=== PATIENT | male | born 1960 ===

== ENCOUNTER 2018-05-13 17:57 | Emergency (ER) | payer OTHER ==
[2018-05-13] MEDS ORDERED: MORPHINE IV ONE (18:14)
[2018-05-13] MEDS ORDERED: NACL 0.9% 1000 ML 1,000 ML IV ONE (18:14)
[2018-05-13] MEDS ORDERED: ZOFRAN IV ONE ×2 (18:14→20:27)
--- NOTE | 2018-05-13 18:16 | Emergency Department Report ---
ED General Adult HPI - General Chief complaint: Abdominal Pain Stated complaint: ABDOMINAL PAIN Time Seen by Provider: 05/13/18 18:07 Source: patient, EMS Mode of arrival: Stretcher Limitations: No Limitations - History of Present Illness Initial comments: Patient presents to the emergency department with a chief complaint of abdominal pain that started after midnight. Patient states the pain is sharp in nature and denies any radiation. Patient denies chest pain, shortness breath, headache. -: Sudden Location: abdomen Radiation: non-radiation Severity scale (0 -10): 5 Quality: sharp Consistency: constant Improves with: none Worsens with: none Associated Symptoms: denies other symptoms Treatments Prior to Arrival: none - Related Data Home Medications Medication Instructions Recorded Confirmed Last Taken Lisinopril 20 mg PO DAILY 05/13/18 05/13/18 05/13/18 20mg metFORMIN 500 mg PO BID 05/13/18 05/13/18 05/13/18 500mg Previous Rx's Medication Instructions Recorded Last Taken Type HYDROcodone/APAP 5-325 [Warrior 1 each PO Q4HR PRN #15 tablet 05/13/18 Unknown Rx 5/325] Ondansetron [Zofran Odt] 4 mg PO Q6H PRN #20 tab.rapdis 05/13/18 Unknown Rx Promethazine [Phenergan TAB] 25 mg PO Q6HR PRN #12 tab 05/13/18 Unknown Rx Tamsulosin [Flomax] 0.4 mg PO QDAY #7 cap 05/13/18 Unknown Rx Allergies Allergy/AdvReac Type Severity Reaction Status Date / Time No Known Allergies Allergy Unverified 05/13/18 18:03 ED Review of Systems ROS: Stated complaint: ABDOMINAL PAIN Other details as noted in HPI Comment: All other systems reviewed and negative Constitutional: denies: chills, fever Eyes: denies: eye pain, eye discharge, vision change ENT: denies: ear pain, throat pain Respiratory: denies: cough, shortness of breath, wheezing Cardiovascular: denies: chest pain, palpitations Endocrine: no symptoms reported Gastrointestinal: abdominal pain. denies: nausea, diarrhea Genitourinary: denies: urgency, dysuria Musculoskeletal: denies: back pain, joint swelling, arthralgia Skin: denies: rash, lesions Neurological: denies: headache, weakness, paresthesias Psychiatric: denies: anxiety, depression Hematological/Lymphatic: denies: easy bleeding, easy bruising ED Past Medical Hx - Past Medical History Previous Medical History?: Yes - Social History Smoking Status: Current Every Day Smoker Substance Use Type: None - Medications Home Medications: Home Medications Medication Instructions Recorded Confirmed Last Taken Type HYDROcodone/APAP 5-325 [Warrior 1 each PO Q4HR PRN #15 tablet 05/13/18 Unknown Rx 5/325] Lisinopril 20 mg PO DAILY 05/13/18 05/13/18 05/13/18 History 20mg Ondansetron [Zofran Odt] 4 mg PO Q6H PRN #20 tab.rapdis 05/13/18 Unknown Rx Promethazine [Phenergan TAB] 25 mg PO Q6HR PRN #12 tab 05/13/18 Unknown Rx Tamsulosin [Flomax] 0.4 mg PO QDAY #7 cap 05/13/18 Unknown Rx metFORMIN 500 mg PO BID 05/13/18 05/13/18 05/13/18 History 500mg ED Physical Exam - General Limitations: No Limitations General appearance: alert, in no apparent distress - Head Head exam: Present: atraumatic, normocephalic - Eye Eye exam: Present: normal appearance, PERRL, EOMI - ENT ENT exam: Present: mucous membranes dry - Neck Neck exam: Present: normal inspection - Respiratory Respiratory exam: Present: normal lung sounds bilaterally. Absent: respiratory distress, wheezes, rales - Cardiovascular Cardiovascular Exam: Present: regular rate, normal rhythm. Absent: systolic murmur, diastolic murmur, rubs, gallop - GI/Abdominal GI/Abdominal exam: Present: soft, tenderness (ttp rlq ), normal bowel sounds. Absent: distended - Rectal Rectal exam: Present: deferred - Extremities Exam Extremities exam: Present: normal inspection - Back Exam Back exam: Present: normal inspection - Neurological Exam Neurological exam: Present: alert, oriented X3 - Psychiatric Psychiatric exam: Present: normal affect, normal mood - Skin Skin exam: Present: warm, dry, intact, normal color. Absent: rash ED Course Vital Signs 05/13/18 05/13/18 05/13/18 18:15 18:23 18:31 Temperature 98.7 F Pulse Rate 88 89 Respiratory 22 16 17 Rate Blood Pressure 136/77 Blood Pressure 136/77 [Left] O2 Sat by Pulse 96 93 Oximetry 05/13/18 05/13/18 18:45 20:03 Temperature Pulse Rate 81 Respiratory 18 Rate Blood Pressure 136/77 136/77 Blood Pressure [Left] O2 Sat by Pulse 91 92 Oximetry ED Medical Decision Making - Lab Data Result diagrams: 05/13/18 18:15 05/13/18 18:15 Lab Results 05/13/18 05/13/18 05/13/18 Range/Units 18:15 18:15 18:19 WBC 8.5 (4.5-11.0) K/mm3 RBC 4.96 (3.65-5.03) M/mm3 Hgb 15.7 H (11.8-15.2) gm/dl Hct 44.8 (35.5-45.6) % MCV 90 (84-94) fl MCH 32 (28-32) pg MCHC 35 H (32-34) % RDW 14.7 (13.2-15.2) % Plt Count 205 (140-440) K/mm3 Lymph % (Auto) 6.6 L (13.4-35.0) % Collin % (Auto) 2.5 (0.0-7.3) % Eos % (Auto) 0.8 (0.0-4.3) % Baso % (Auto) 0.6 (0.0-1.8) % Lymph # 0.6 L (1.2-5.4) K/mm3 Collin # 0.2 (0.0-0.8) K/mm3 Eos # 0.1 (0.0-0.4) K/mm3 Baso # 0.0 (0.0-0.1) K/mm3 Seg Neutrophils % 89.5 H (40.0-70.0) % Seg Neutrophils # 7.6 (1.8-7.7) K/mm3 Sodium 135 L (137-145) mmol/L Potassium 4.4 (3.6-5.0) mmol/L Chloride 98.5 (98-107) mmol/L Carbon Dioxide 24 (22-30) mmol/L Anion Gap 17 mmol/L BUN 20 (9-20) mg/dL Creatinine 0.8 (0.8-1.5) mg/dL Estimated GFR > 60 ml/min BUN/Creatinine Ratio 25 % Glucose 417 H (75-100) mg/dL Calcium 8.7 (8.4-10.2) mg/dL Total Bilirubin 0.20 (0.1-1.2) mg/dL AST 34 (5-40) units/L ALT 35 (7-56) units/L Alkaline Phosphatase 81 (35-129) units/L Total Protein 7.8 (6.3-8.2) g/dL Albumin 3.7 L (3.9-5) g/dL Albumin/Globulin Ratio 0.9 % Lipase 74 H (13-60) units/L Urine Color (Yellow) Urine Turbidity (Clear) Urine pH (5.0-7.0) Ur Specific Lincoln (1.003-1.030) Urine Protein (Negative) mg/dL Urine Glucose (UA) (Negative) mg/dL Urine Ketones (Negative) mg/dL Urine Blood (Negative) Urine Nitrite (Negative) Urine Bilirubin (Negative) Urine Urobilinogen (<2.0) mg/dL Ur Leukocyte Esterase (Negative) Urine WBC (Auto) (0.0-6.0) /HPF Urine RBC (Auto) (0.0-6.0) /HPF U Epithel Cells (Auto) (0-13.0) /HPF Urine Mucus /HPF 05/13/18 Range/Units 18:23 WBC (4.5-11.0) K/mm3 RBC (3.65-5.03) M/mm3 Hgb (11.8-15.2) gm/dl Hct (35.5-45.6) % MCV (84-94) fl MCH (28-32) pg MCHC (32-34) % RDW (13.2-15.2) % Plt Count (140-440) K/mm3 Lymph % (Auto) (13.4-35.0) % Collin % (Auto) (0.0-7.3) % Eos % (Auto) (0.0-4.3) % Baso % (Auto) (0.0-1.8) % Lymph # (1.2-5.4) K/mm3 Collin # (0.0-0.8) K/mm3 Eos # (0.0-0.4) K/mm3 Baso # (0.0-0.1) K/mm3 Seg Neutrophils % (40.0-70.0) % Seg Neutrophils # (1.8-7.7) K/mm3 Sodium (137-145) mmol/L Potassium (3.6-5.0) mmol/L Chloride (98-107) mmol/L Carbon Dioxide (22-30) mmol/L Anion Gap mmol/L BUN (9-20) mg/dL Creatinine (0.8-1.5) mg/dL Estimated GFR ml/min BUN/Creatinine Ratio % Glucose (75-100) mg/dL Calcium (8.4-10.2) mg/dL Total Bilirubin (0.1-1.2) mg/dL AST (5-40) units/L ALT (7-56) units/L Alkaline Phosphatase (35-129) units/L Total Protein (6.3-8.2) g/dL Albumin (3.9-5) g/dL Albumin/Globulin Ratio % Lipase (13-60) units/L Urine Color Straw (Yellow) Urine Turbidity Clear (Clear) Urine pH 5.0 (5.0-7.0) Ur Specific Lincoln 1.031 H (1.003-1.030) Urine Protein <15 mg/dl (Negative) mg/dL Urine Glucose (UA) >=500 (Negative) mg/dL Urine Ketones Neg (Negative) mg/dL Urine Blood Neg (Negative) Urine Nitrite Neg (Negative) Urine Bilirubin Neg (Negative) Urine Urobilinogen < 2.0 (<2.0) mg/dL Ur Leukocyte Esterase Neg (Negative) Urine WBC (Auto) < 1.0 (0.0-6.0) /HPF Urine RBC (Auto) < 1.0 (0.0-6.0) /HPF U Epithel Cells (Auto) < 1.0 (0-13.0) /HPF Urine Mucus Few /HPF - Radiology Data Radiology results: report reviewed Referring Physician: KIMO RECINOS Patient Name: KETTY MATUTE Date of : 1960 Sex: Male Report Date: 2018-05-13 Report Status: Finalized [facility] [address] [place] [address] Cat Scan Report Signed Patient: KETTY MATUTE MR#: [id number] : 1960 Acct:[id number] Age/Sex: 58 / M ADM Date: 05/13/18 Loc: ED Attending Dr: Ordering Physician: KIMO RECINOS MD Date of Service: 05/13/18 Procedure(s): CT abdomen pelvis wo con Accession Number(s): [id number] cc: KIMO RECINOS MD FINAL REPORT EXAM: CT ABDOMEN PELVIS WO CON HISTORY: rlq ab pain TECHNIQUE: Axial helical imaging through the abdomen and pelvis with sagittal and coronal reformatted images obtained. Comparison: None FINDINGS: The lung bases are without infiltrate, pneumothorax or pleural fluid collection. The heart is enlarged. There is a small pericardial fluid collection. The liver is enlarged but otherwise unremarkable in appearance. The spleen, pancreas and adrenal glan ds are unremarkable. There are small nonobstructing stones in the left renal pelvis. There is an approximately 5.3 millimeter by 3.5 millimeter by 7.5 millimeter stone in the proximal to mid right ureter. There is no evidence of hydronephrosis of either kidney. The gallbladder is moderately distended and unremarkable. The stomach is moderately to markedly distended out of proportion to the degree of distention of the remainder of the bowel which is normal caliber. The appendix is normal caliber. There is no evidence of pneumoperitoneum or free fluid. The abdominal aorta is normal caliber. There is no evidence of pathologic intra-abdominal adenopathy by CT size criteria. The urinary bladder is moderately distended and unremarkable. The prostate gland and seminal vesicles are unremarkable. There are bilateral inguinal hernias that contain fat. The bony structures are notable for spondylitic change of the visualized portion of the thoracic spine. IMPRESSION: 1. Approximately 3.5 millimeter x 5.3 millimeter x 7.5 millimeter stone proximal to mid right ureter. Additional stones left renal pelvis. No evidence of hydronephrosis. 2. Cardiomegaly with small pericardial fluid collection. 3. Hepatomegaly. 4. Moderate to marked distention of the stomach out of proportion to the degree of the distention of the remainder of the bowel. Correlation with possible ingestion of large meal prior to this study will be helpful. Alternatively delayed gastric emptying or gastric paresis would need to be considered. 5. Bilateral inguinal hernias that contain fat. 6. Spondylitic change thoracic spin e. Transcribed By: ED Dictated By: ANUP ALVARADO MD Electronically Authenticated By: ANUP ALVARADO MD Signed Date/Time: 05/13/181956 DD/ 55 TD/TT: 05/13/181955 - Medical Decision Making Discussed results with patient Patient had improvement with [facility] Critical care attestation.: If time is entered above; I have spent that time in minutes in the direct care of this critically ill patient, excluding procedure time. ED Disposition Clinical Impression: Nephrolithiasis Disposition: TO HOME OR SELFCARE Is pt being admited?: No Does the pt Need Aspirin: No Condition: Stable Instructions: Kidney Stones (ED) Additional Instructions: return if worse Prescriptions: HYDROcodone/APAP 5-325 [Warrior 5/325] 1 each PO Q4HR PRN #15 tablet PRN Reason: Pain Ondansetron [Zofran Odt] 4 mg PO Q6H PRN #20 tab.rapdis PRN Reason: Nausea Promethazine [Phenergan TAB] 25 mg PO Q6HR PRN #12 tab PRN Reason: Nausea Tamsulosin [Flomax] 0.4 mg PO QDAY #7 cap Referrals: ELMO KRAMER MD [Primary Care Provider] - 3-5 Days DONNA JACOME MD [Staff Physician] - 3-5 Days Time of Disposition: 20:35
[2018-05-13 18:35] LABS: Basophils % (Auto) 0.6 % (0.0-1.8); Eosinophils # (Auto) 0.1 K/mm3 (0.0-0.4); Eosinophils % (Auto) 0.8 % (0.0-4.3); Hematocrit 44.8 % (35.5-45.6); Hemoglobin 15.7 gm/dl (11.8-15.2); Lymphocytes # (Auto) 0.6 K/mm3 (1.2-5.4); Lymphocytes % (Auto) 6.6 % (13.4-35.0); Mean Corpuscular HGB Conc 35 % (32-34); Mean Corpuscular Volume 90 fl (84-94); Monocytes # (Auto) 0.2 K/mm3 (0.0-0.8); Monocytes % (Auto) 2.5 % (0.0-7.3); Platelet Count 205 K/mm3 (140-440); Red Blood Count 4.96 M/mm3 (3.65-5.03); Red Cell Distribution Width 14.7 % (13.2-15.2)
[2018-05-13 18:52] LABS: Albumin 3.7 g/dL (3.9-5); BUN/Creatinine Ratio 25; Blood Urea Nitrogen 20 mg/dL (9-20); Calcium 8.7 mg/dL (8.4-10.2); Hemolysis Index 72
[2018-05-13 18:53] LABS: Alanine Aminotransferase 35 units/L (7-56)
[2018-05-13 18:56] LABS: Bilirubin,Urine NEG (Negative); Blood,Urine NEG (Negative); Color,Urine Straw (Yellow); Mucus,Urine FEW /HPF; Protein,Urine <15 mg/dL mg/dL (Negative); RBC,Urine < 1.0 /HPF (0.0-6.0); Urobilinogen,Urine < 2.0 mg/dL (<2.0); WBC,Urine < 1.0 /HPF (0.0-6.0)
--- NOTE | 2018-05-13 19:57 | Cat Scan Report ---
FINAL REPORT EXAM: CT ABDOMEN PELVIS WO CON HISTORY: rlq ab pain TECHNIQUE: Axial helical imaging through the abdomen and pelvis with sagittal and coronal reformatte d images obtained. Comparison: None FINDINGS: The lung bases are without infiltrate, pneumothorax or pleural fluid collection. The heart is enlarged. There is a small pericardial fluid collection. The liver is enlarged but otherwise unremarkable in appearance. The spleen, pancreas and adrenal glands are unremarkable. There are small nonobstructing stones in the left renal pelvis. There is an approximately 5.3 millimeter by 3.5 millimeter by 7.5 millimeter stone in the proximal to mid right ureter. There is no evidence of hydronephrosis of either kidney. The gallbladder is moderately distended and unremarkable. The stomach is moderately to markedly distended out of proportion to the degree of distention of the remainder of the bowel which is normal caliber. The appendix is normal caliber. There is no evidence of pneumoperitoneum or free fluid. The abdominal aorta is normal caliber. There is no evidence of pathologic intra-abdominal adenopathy by CT size criteria. The urinary bladder is moderately distended and unremarkable. The prostate gland and seminal vesicles are unremarkable. There are bilateral inguinal hernias that contain fat. The bony structures are notable for spondylitic change of the visualized portion of the thoracic spin e. IMPRESSION: 1. Approximately 3.5 millimeter x 5.3 millimeter x 7.5 millimeter stone proximal to mid right ureter. Additional stones left renal pelvis. No evidence of hydronephrosis. 2. Cardiomegaly with small pericardial fluid collection. 3. Hepatomegaly. 4. Moderate to marked distention of the stomach out of proportion to the degree of the distention of the remainder of the bowel. Correlation with possible ingestion of large meal prior to this study kin l be helpful. Alternatively delayed gastric emptying or gastric paresis would need to be considered. 5. Bilateral inguinal hernias that contain fat. 6. Spondylitic change thoracic spine.
[2018-05-13] MEDS ORDERED: ZOFRAN ONE (20:26)
[2018-05-15 12:41] VITALS: BP 136/77
== END 2018-05-13 21:08 | disposition home or self-care (01) ==
LOC: ED 17:57
DX: N20.0 Calculus of kidney (principal); F17.200 Nicotine dependence, unspecified, uncomplicated
CPT/HCPCS: 36415; 74176; 80053; 81001; 83690; 85025; 96374; 96375; 96376; 99284; J2270; J2405; J7030

== ENCOUNTER 2018-07-24 08:28 | Emergency (ER) | payer OTHER ==
[2018-07-24 08:34] VITALS: BP 154/98
--- NOTE | 2018-07-24 10:19 | Emergency Department Report ---
- General Chief Complaint: Upper Respiratory Infection Stated Complaint: ILLNESS Time Seen by Provider: 07/24/18 09:34 Source: patient Mode of arrival: Ambulatory Limitations: No Limitations - History of Present Illness Initial Comments: This is a 58-year-old male nontoxic, well nourished in appearance, no acute signs of distress presents to the ED with c/o of sore throat, frontal sinus pain, body aches, rhinorrhea, nasal congestion x1 week. Patient denies any cough or sick contact. Patient denies any recent travels, long car, recent hospital stays. Patient denies any calf pain or calf tenderness. Patient denies any chest pain, short of breath, fever, chills, nausea, vomiting, hemoptysis, numbness, tingling, headache or stiff neck. Denies any allergies. MD Complaint: sore throat, rhinorrhea, nasal congestion, sinus pain -: week(s) (1) Severity: mild Severity scale (0 -10): 8 Quality: aching Consistency: constant Improves With: nothing Worsens With: nothing Associated Symptoms: rhinorrhea, nasal congestion, sore throat. denies: fever, chills, myalgias, diaphoresis, headache, stiff neck, cough, chest pain, shortness of breath, abdominal pain, nausea, vomiting, diarrhea, dysuria, rash, confusion, right sweats, weight loss, epistaxis, hoarseness, ear pain Treatments Prior to Arrival: none - Related Data Home Medications Medication Instructions Recorded Confirmed Last Taken Lisinopril 20 mg PO DAILY 05/13/18 05/13/18 05/13/18 20mg metFORMIN 500 mg PO BID 05/13/18 05/13/18 05/13/18 500mg Previous Rx's Medication Instructions Recorded Last Taken Type HYDROcodone/APAP 5-325 [[place] 1 each PO Q4HR PRN #15 tablet 05/13/18 Unknown Rx 5/325] Ondansetron [Zofran Odt] 4 mg PO Q6H PRN #20 tab.rapdis 05/13/18 Unknown Rx Promethazine [Phenergan TAB] 25 mg PO Q6HR PRN #12 tab 05/13/18 Unknown Rx Tamsulosin [Flomax] 0.4 mg PO QDAY #7 cap 05/13/18 Unknown Rx Amoxicillin/K Clav Tab [Augmentin 1 tab PO Q12HR #20 tab 04/14/19 Unknown Rx 875 mg] Ibuprofen [Motrin] 600 mg PO Q8H PRN #20 tablet 07/24/18 Unknown Rx Allergies Allergy/AdvReac Type Severity Reaction Status Date / Time No Known Allergies Allergy Verified 07/24/18 08:29 ED Review of Systems ROS: Stated complaint: ILLNESS Other details as noted in HPI Constitutional: denies: chills, fever Eyes: denies: eye pain, eye discharge, vision change ENT: congestion. denies: ear pain, throat pain Respiratory: cough. denies: shortness of breath, wheezing Cardiovascular: denies: chest pain, palpitations Endocrine: no symptoms reported Gastrointestinal: denies: abdominal pain, nausea, diarrhea Genitourinary: denies: urgency, dysuria Musculoskeletal: denies: back pain, joint swelling, arthralgia Skin: denies: rash, lesions Neurological: denies: headache, weakness, paresthesias Psychiatric: denies: anxiety, depression Hematological/Lymphatic: denies: easy bleeding, easy bruising ED Past Medical Hx - Past Medical History Hx Hypertension: Yes Hx Diabetes: Yes - Surgical History Additional Surgical History: Sleep apnea surgery - Social History Smoking Status: Current Every Day Smoker Substance Use Type: None - Medications Home Medications: Home Medications Medication Instructions Recorded Confirmed Last Taken Type HYDROcodone/APAP 5-325 [[place] 1 each PO Q4HR PRN #15 tablet 05/13/18 Unknown Rx 5/325] Lisinopril 20 mg PO DAILY 05/13/18 05/13/18 05/13/18 History 20mg Ondansetron [Zofran Odt] 4 mg PO Q6H PRN #20 tab.rapdis 05/13/18 Unknown Rx Promethazine [Phenergan TAB] 25 mg PO Q6HR PRN #12 tab 05/13/18 Unknown Rx Tamsulosin [Flomax] 0.4 mg PO QDAY #7 cap 05/13/18 Unknown Rx metFORMIN 500 mg PO BID 05/13/18 05/13/18 05/13/18 History 500mg Amoxicillin/K Clav Tab [Augmentin 1 tab PO Q12HR #20 tab 07/24/18 Unknown Rx 875 mg] Ibuprofen [Motrin] 600 mg PO Q8H PRN #20 tablet 07/24/18 Unknown Rx ED Physical Exam - General Limitations: No Limitations General appearance: alert, in no apparent distress - Head Head exam: Present: atraumatic, normocephalic - Eye Eye exam: Present: normal appearance - Expanded ENT Exam Expanded Ear exam: Present: normal external inspection Mouth exam: Present: normal external inspection, tongue normal. Absent: drooling, trismus, muffled voice Teeth exam: Present: normal inspection Throat exam: Positive: tonsillar erythema, other (Uvula midline). Negative: tonsillomegaly, tonsillar exudate, R peritonsillar mass, L peritonsillar mass - Neck Neck exam: Present: normal inspection, full ROM. Absent: tenderness, meningismus, lymphadenopathy - Respiratory Respiratory exam: Present: normal lung sounds bilaterally. Absent: respiratory distress, wheezes, rales, rhonchi, stridor, chest wall tenderness, accessory muscle use, decreased breath sounds, prolonged expiratory - Cardiovascular Cardiovascular Exam: Present: regular rate, normal rhythm, normal heart sounds. Absent: bradycardia, tachycardia, irregular rhythm, systolic murmur, diastolic murmur, rubs, gallop - Extremities Exam Extremities exam: Present: normal inspection, full ROM, normal capillary refill. Absent: tenderness - Back Exam Back exam: Present: normal inspection, full ROM - Neurological Exam Neurological exam: Present: alert, oriented X3, normal gait - Psychiatric Psychiatric exam: Present: normal affect, normal mood - Skin Skin exam: Present: warm, dry, intact, normal color. Absent: rash - Other Other exam information: Frontal sinus pain ED Course Vital Signs 07/24/18 08:32 Temperature 98.4 F Pulse Rate 90 Respiratory 20 Rate Blood Pressure 154/98 O2 Sat by Pulse 98 Oximetry - Reevaluation(s) Reevaluation #1: 07/24/18 10:18 Patient is speaking in full sentences with no signs of distress noted. ED Medical Decision Making - Medical Decision Making This is a 58-year-old male that presents with sinusitis and pharyngitis. Patient is stable and was examined by me. Chest x-ray has been obtained and dictated by radiologist with normal exam. Patient is notified of x-ray results with no questions noted. Patient is treated with Augmentin. Vitals stable. Patient is nonfebrile and normal heart rate. Patient was instructed Follow-up with a primary care doctor in 3-5 days or if symptoms worsen and continue return to emergency room as soon as possible. At time time of discharge, the patient does not seem toxic or ill in appearance. No acute signs of distress noted. Patient agrees to discharge treatment plan of care. No further questions noted by the patient. Critical care attestation.: If time is entered above; I have spent that time in minutes in the direct care of this critically ill patient, excluding procedure time. ED Disposition Clinical Impression: Pharyngitis Qualifiers: Pharyngitis/tonsillitis etiology: unspecified etiology Qualified Code(s): J02.9 - Acute pharyngitis, unspecified Sinusitis Qualifiers: Sinusitis location: frontal Chronicity: acute Recurrence: non-recurrent Qualified Code(s): J01.10 - Acute frontal sinusitis, unspecified Disposition: TO HOME OR SELFCARE Is pt being admited?: No Does the pt Need Aspirin: No Condition: Stable Instructions: Pharyngitis (ED), Sinusitis (ED) Additional Instructions: Follow-up with a primary care doctor in 3-5 days or if symptoms worsen and continue return to emergency room as soon as possible. Prescriptions: Amoxicillin/K Clav Tab [Augmentin 875 mg] 1 tab PO Q12HR #20 tab Ibuprofen [Motrin] 600 mg PO Q8H PRN #20 tablet PRN Reason: Pain Referrals: AGA LOONEY MD [Primary Care Provider] - 3-5 Days PRIMARY CAREMD [Referring] - 3-5 Days JENNIFER PERALTA MD [Staff Physician] - 3-5 Days [facility] [place] [Outside] - 3-5 Days [facility] [Outside] - 3-5 Days Forms: Work/School Release Form(ED)
== END 2018-07-24 10:20 | disposition home or self-care (01) ==
LOC: ED 08:28
DX: J02.9 Acute pharyngitis, unspecified (principal); J01.10 Acute frontal sinusitis, unspecified; I10 Essential (primary) hypertension; E11.9 Type 2 diabetes mellitus without complications; F17.200 Nicotine dependence, unspecified, uncomplicated
CPT/HCPCS: 99282

== ENCOUNTER 2018-10-12 21:05 | Emergency (ER) | payer OTHER ==
[2018-10-12 21:39] VITALS: BP 147/70
--- NOTE | 2018-10-12 21:40 | Event Note ---
ED Screening Note Date of service: 10/12/18 Time: 21:37 ED Screening Note: 58 y/o male comes in for right side abd pain. Pain start in the middle than migrated to the right side started this afternoon. No f/c no n/v/d. This initial assessment/diagnostic orders/clinical plan/treatment(s) is/are subject to change based on patients health status, clinical progression and re- assessment by fellow clinical providers in the ED. Further treatment and workup at subsequent clinical providers discretion. Patient/guardian urged not to elope from the ED as their condition may be serious if not clinically assessed and managed. Initial orders include:
[2018-10-12 21:53] LABS: Basophils # (Auto) 0.1 K/mm3 (0.0-0.1); Basophils % (Auto) 0.9 % (0.0-1.8); Eosinophils # (Auto) 0.2 K/mm3 (0.0-0.4); Eosinophils % (Auto) 2.5 % (0.0-4.3); Hematocrit 40.5 % (35.5-45.6); Hemoglobin 14.1 gm/dl (11.8-15.2); Lymphocytes # (Auto) 1.2 K/mm3 (1.2-5.4); Lymphocytes % (Auto) 17.8 % (13.4-35.0); Mean Corpuscular HGB Conc 35 % (32-34); Mean Corpuscular Volume 93 fl (84-94); Monocytes # (Auto) 0.5 K/mm3 (0.0-0.8); Platelet Count 206 K/mm3 (140-440); Red Blood Count 4.35 M/mm3 (3.65-5.03); Red Cell Distribution Width 14.5 % (13.2-15.2)
[2018-10-12 22:19] LABS: Albumin 3.9 g/dL (3.9-5); BUN/Creatinine Ratio 25; Blood Urea Nitrogen 20 mg/dL (9-20); Calcium 8.8 mg/dL (8.4-10.2); Hemolysis Index 35
[2018-10-12] MEDS ORDERED: ZOFRAN IV ONE (22:28)
[2018-10-12] MEDS ORDERED: TORADOL IV ONE (22:28)
[2018-10-12] MEDS ORDERED: MORPHINE IV ONE (22:28)
--- NOTE | 2018-10-12 22:32 | Emergency Department Report ---
ED Abdominal Pain HPI - General Chief Complaint: Abdominal Pain Stated Complaint: RT SIDE ABD PAIN AND SWOLLEN Time Seen by Provider: 10/12/18 22:27 Source: patient, family Mode of arrival: Ambulatory Limitations: No Limitations - History of Present Illness Initial Comments: Mr. Amaro is a 58-year-old male with history of hypertension diabetes who pres ents with a generalized abdominal pain now localized in the right lower quadrant. Pain is 12/10 in severity. Sharp. He ate red lobster this afternoon. He is in good health prior to the abdominal pain. No vomiting. No fever. No diarrhea. No previous history of abdominal surgery. Was told that he had kidney stone earlier this year. PCP Dr. Manjinder Terrell MD Complaint: abdominal pain -: Sudden Location: diffuse Radiation: RLQ Severity: severe Severity scale (0 -10): 10 Quality: cramping, sharp Consistency: constant Improves With: nothing Worsens With: nothing Associated Symptoms: denies other symptoms - Related Data Home Medications Medication Instructions Recorded Confirmed Last Taken Lisinopril 20 mg PO DAILY 05/13/18 05/13/18 05/13/18 20mg metFORMIN 500 mg PO BID 05/13/18 05/13/18 05/13/18 500mg Previous Rx's Medication Instructions Recorded Last Taken Type HYDROcodone/APAP 5-325 [[place] 1 each PO Q4HR PRN #15 tablet 05/13/18 Unknown Rx 5/325] Ondansetron [Zofran Odt] 4 mg PO Q6H PRN #20 tab.rapdis 05/13/18 Unknown Rx Promethazine [Phenergan TAB] 25 mg PO Q6HR PRN #12 tab 05/13/18 Unknown Rx Tamsulosin [Flomax] 0.4 mg PO QDAY #7 cap 05/13/18 Unknown Rx Amoxicillin/K Clav Tab [Augmentin 1 tab PO Q12HR #20 tab 07/24/18 Unknown Rx 875 mg] Ibuprofen [Motrin] 600 mg PO Q8H PRN #20 tablet 07/24/18 Unknown Rx Tamsulosin [Flomax] 0.4 mg PO QDAY 7 Days #7 cap 10/13/18 Unknown Rx oxyCODONE /ACETAMINOPHEN [Percocet 1 tab PO Q6HR PRN #15 tablet 10/13/18 Unknown Rx 5/325] Allergies Allergy/AdvReac Type Severity Reaction Status Date / Time No Known Allergies Allergy Verified 10/12/18 21:39 ED Review of Systems ROS: Stated complaint: RT SIDE ABD PAIN AND SWOLLEN Other details as noted in HPI Comment: All other systems reviewed and negative ED Past Medical Hx - Past Medical History Previous Medical History?: Yes Hx Hypertension: Yes Hx Diabetes: Yes Additional medical history: sleep apnea - Surgical History Past Surgical History?: Yes Additional Surgical History: Sleep apnea surgery 1994 - Social History Smoking Status: Current Every Day Smoker Substance Use Type: None - Medications Home Medications: Home Medications Medication Instructions Recorded Confirmed Last Taken Type HYDROcodone/APAP 5-325 [[place] 1 each PO Q4HR PRN #15 tablet 05/13/18 Unknown Rx 5/325] Lisinopril 20 mg PO DAILY 05/13/18 05/13/18 05/13/18 History 20mg Ondansetron [Zofran Odt] 4 mg PO Q6H PRN #20 tab.rapdis 05/13/18 Unknown Rx Promethazine [Phenergan TAB] 25 mg PO Q6HR PRN #12 tab 05/13/18 Unknown Rx Tamsulosin [Flomax] 0.4 mg PO QDAY #7 cap 05/13/18 Unknown Rx metFORMIN 500 mg PO BID 05/13/18 05/13/18 05/13/18 History 500mg Amoxicillin/K Clav Tab [Augmentin 1 tab PO Q12HR #20 tab 07/24/18 Unknown Rx 875 mg] Ibuprofen [Motrin] 600 mg PO Q8H PRN #20 tablet 07/24/18 Unknown Rx Tamsulosin [Flomax] 0.4 mg PO QDAY 7 Days #7 cap 10/13/18 Unknown Rx oxyCODONE /ACETAMINOPHEN [Percocet 1 tab PO Q6HR PRN #15 tablet 10/13/18 Unknown Rx 5/325] ED Physical Exam - General Limitations: No Limitations General appearance: alert, in no apparent distress - Head Head exam: Present: atraumatic, normocephalic - Eye Eye exam: Present: normal appearance - ENT ENT exam: Present: mucous membranes moist - Neck Neck exam: Present: normal inspection, full ROM - Respiratory Respiratory exam: Present: normal lung sounds bilaterally. Absent: respiratory distress, wheezes, rales, rhonchi - Cardiovascular Cardiovascular Exam: Present: regular rate, normal rhythm, normal heart sounds. Absent: systolic murmur, diastolic murmur, rubs, gallop - GI/Abdominal GI/Abdominal exam: Present: soft, normal bowel sounds. Absent: distended, tenderness, guarding, rebound - Rectal Rectal exam: Present: deferred - Extremities Exam Extremities exam: Present: normal inspection - Back Exam Back exam: Present: normal inspection - Neurological Exam Neurological exam: Present: alert, oriented X3, normal gait - Psychiatric Psychiatric exam: Present: normal affect, normal mood - Skin Skin exam: Present: warm, dry, intact, normal color. Absent: rash ED Course Vital Signs 10/12/18 21:37 Temperature 97.4 F L Pulse Rate 66 Respiratory 20 Rate Blood Pressure 147/70 O2 Sat by Pulse 95 Oximetry ED Medical Decision Making - Lab Data Result diagrams: 10/12/18 21:43 10/12/18 21:43 Laboratory Results - last 24 hr 10/12/18 10/12/18 21:43 21:43 WBC 7.0 RBC 4.35 Hgb 14.1 Hct 40.5 MCV 93 MCH 32 MCHC 35 H RDW 14.5 Plt Count 206 Lymph % (Auto) 17.8 [place] % (Auto) 7.0 Eos % (Auto) 2.5 Baso % (Auto) 0.9 Lymph # 1.2 [place] # 0.5 Eos # 0.2 Baso # 0.1 Seg Neutrophils % 71.8 H Seg Neutrophils # 5.0 Sodium 137 Potassium 4.6 Chloride 101.6 Carbon Dioxide 23 Anion Gap 17 BUN 20 Creatinine 0.8 Estimated GFR > 60 BUN/Creatinine Ratio 25 Glucose 330 H Calcium 8.8 Total Bilirubin 0.30 AST 29 ALT 29 Alkaline Phosphatase 72 Total Protein 7.5 Albumin 3.9 Albumin/Globulin Ratio 1.1 - Radiology Data Radiology results: report reviewed 9 mm distal ureteral stone with hydronephrosis no perinephric straining - Medical Decision Making Mr. Amaro has severe pain due to renal colic he has a 9 mm distal ureter stone seen on previous CT scan in May but has migrated. His pain is 0/10 upon reassessment easily controlled with small doses of analgesia in the ED. he was given urine strainer verbal and written education. Referral to urologist. Prescribed Percocet and Flomax. No evidence of sepsis. No evidence of kidney injury. Critical care attestation.: If time is entered above; I have spent that time in minutes in the direct care of this critically ill patient, excluding procedure time. ED Disposition Clinical Impression: Renal colic on right side, Ureteral calculus, right Disposition: - TO HOME OR SELFCARE Is pt being admited?: No Does the pt Need Aspirin: No Condition: Stable Instructions: Kidney Stones (ED), How to Strain Your Urine (ED) Prescriptions: Tamsulosin [Flomax] 0.4 mg PO QDAY 7 Days #7 cap oxyCODONE /ACETAMINOPHEN [Percocet 5/325] 1 tab PO Q6HR PRN #15 tablet PRN Reason: Pain Referrals: Gogo BARNARD MD [Primary Care Provider] - 3-5 Days DONNA JACOME MD [Staff Physician] - 2-3 Days
[2018-10-12] MEDS ORDERED: MORPHINE ONE (22:45)
[2018-10-12 22:56] LABS: Alanine Aminotransferase 29 units/L (7-56)
--- NOTE | 2018-10-12 23:41 | Cat Scan Report ---
CT abdomen pelvis w con INDICATION / CLINICAL INFORMATION: abd pain right side.. TECHNIQUE: Axial CT imaging of the abdomen and pelvis was performed with IV contrast only. Sagittal and coronal reformatted imaging obtained and reviewed. All CT scans at this location are performed using CT dose reduction for ALARA by means of automated exposure control. COMPARISON: Prior CT abdomen/pelvis, 05/13/2018 FINDINGS: CT abdomen with contrast demonstrates mild right hydronephrosis caused by a calculus in the distal ri ght ureter. The calculus measures 9 x 6 mm and is approximately 2 cm from the right ureteral orifice. On the prior CT from 05/13/2018, this calculus was noted to be in the proximal right ureter at the UPJ level. The liver demonstrates some minimal hepatic steatosis but is otherwise unremarkable. Spleen, pancreas , left kidney, and adrenal glands are all unremarkable. No visible gallbladder pathology or biliary d ilatation noted. CT pelvis is unremarkable. No pelvic mass, free fluid, or focal inflammatory change noted. There is a normal appendix visualized. GI tract is unremarkable. Visualized lung bases are grossly clear. There is trace pericardial effusion incidentally noted and u nchanged from the prior exam. Review of osseous structures demonstrates severe spondylitic change in the inferior thoracic spine bu t no acute skeletal abnormality. IMPRESSION: 1. Mild right hydronephrosis caused by a 9 x 6 mm calculus in the distal right ureter, as described a rodolfo. On the prior CT from 05/13/2018, this calculus was noted to be in the proximal right ureter. 2. Minimal hepatic steatosis. Signer Name: Sweta Cazares MD Signed: 10/12/2018 11:36 PM Workstation Name: [email or web address]
[2018-10-13] MEDS ORDERED: PERCOCET 5/325 PO ONE (00:17)
[2018-10-13] MEDS ORDERED: FLOMAX PO ONE (00:47)
[2018-10-13 01:12] LABS: Bilirubin,Urine NEG (Negative); Blood,Urine MOD (Negative); Color,Urine Straw (Yellow); Mucus,Urine FEW /HPF; Protein,Urine <15 mg/dL mg/dL (Negative); Urobilinogen,Urine < 2.0 mg/dL (<2.0)
== END 2018-10-13 01:30 | disposition home or self-care (01) ==
LOC: ED 21:05
DX: N23 Unspecified renal colic (principal); N20.1 Calculus of ureter; I10 Essential (primary) hypertension; E11.9 Type 2 diabetes mellitus without complications; G47.30 Sleep apnea, unspecified; F17.200 Nicotine dependence, unspecified, uncomplicated; Z79.899 Other long term (current) drug therapy; Z98.890 Other specified postprocedural states
CPT/HCPCS: 36415; 74177; 80053; 81001; 85025; 87086; 96374; 96375; 99284; J1885; J2270; J2405; Q9967

== ENCOUNTER 2018-10-25 21:55 | Emergency (ER) | payer OTHER ==
[2018-10-25] MEDS ORDERED: NACL 0.9% 1000 ML 1,000 ML IV ONE (22:25)
--- NOTE | 2018-10-25 22:25 | Event Note ---
ED Screening Note ED Screening Note: A/C R FLANK PAIN KNOWN STONE W HYDRO SEE EMR AND NOTES This initial assessment/diagnostic orders/clinical plan/treatment(s) is/are subject to change based on patients health status, clinical progression and re- assessment by fellow clinical providers in the ED. Further treatment and workup at subsequent clinical providers discretion. Patient/guardian urged not to elope from the ED as their condition may be serious if not clinically assessed and managed. Initial orders include: UA LABS NS/PAIN MEDS FOLLOW UP WITH URO
[2018-10-25 22:53] LABS: Hematocrit 39.3 % (35.5-45.6); Hemoglobin 13.8 gm/dl (11.8-15.2); Mean Corpuscular HGB Conc 35 % (32-34); Mean Corpuscular Volume 92 fl (84-94); Platelet Count 216 K/mm3 (140-440); Red Blood Count 4.29 M/mm3 (3.65-5.03); Red Cell Distribution Width 14.4 % (13.2-15.2)
[2018-10-25 23:09] LABS: BUN/Creatinine Ratio 26; Blood Urea Nitrogen 26 mg/dL (9-20); Calcium 8.8 mg/dL (8.4-10.2); Hemolysis Index 16
[2018-10-26 01:34] LABS: Bilirubin,Urine NEG (Negative); Blood,Urine MOD (Negative); Color,Urine Yellow (Yellow); Mucus,Urine FEW /HPF; Protein,Urine <15 mg/dL mg/dL (Negative); Urobilinogen,Urine < 2.0 mg/dL (<2.0)
[2018-10-26] MEDS ORDERED: IBUPROFEN PO ONE (02:06)
[2018-10-26] MEDS ORDERED: PERCOCET 5/325 PO ONE (02:07)
--- NOTE | 2018-10-26 03:13 | Ultrasound Report ---
ULTRASOUND RENAL INDICATION: recent obstruct uropathy. COMPARISON: Abdominal/pelvic CT scan 10/12/2018. FINDINGS: RIGHT KIDNEY: Size: 15.3 cm. Echogenicity: Normal. Cortical thickness: Normal. Stones: Small intrarenal calculus is demonstrated. Hydronephrosis: Mild right pyelocaliectasis appears similar to the CT scan. Cyst or mass: None. Urinary Bladder: No significant abnormality. Free Fluid: None. Additional Findings: None. IMPRESSION 1. Right pyelocaliectasis is unchanged. Right nephrolithiasis. Signer Name: Brent Rudolph MD Signed: 10/26/2018 3:09 AM Workstation Name: [email or web address]
--- NOTE | 2018-10-26 04:05 | Emergency Department Report ---
ED Abdominal Pain HPI - General Chief Complaint: Abdominal Pain Stated Complaint: KIDNEY STONES Time Seen by Provider: 10/25/18 22:23 Source: patient Mode of arrival: Ambulatory Limitations: No Limitations - History of Present Illness Initial Comments: Patient is a 58-year-old male who is here week ago for right-sided pain. Patient was noted to have a large kidney stone in the distal ureter on the right. Patient states she's had intermittent pain comes and goes for the last week. Patient is out of his pain meds. He also says mild nausea. Patient here for second evaluation. Patient denies any vomiting or diarrhea fevers chills or dysuria. Severity scale (0 -10): 7 - Related Data Home Medications Medication Instructions Recorded Confirmed Last Taken Lisinopril 20 mg PO DAILY 05/13/18 05/13/18 05/13/18 20mg metFORMIN 500 mg PO BID 05/13/18 05/13/18 05/13/18 500mg Previous Rx's Medication Instructions Recorded Last Taken Type HYDROcodone/APAP 5-325 [[place] 1 each PO Q4HR PRN #15 tablet 05/13/18 Unknown Rx 5/325] Ondansetron [Zofran Odt] 4 mg PO Q6H PRN #20 tab.rapdis 05/13/18 Unknown Rx Promethazine [Phenergan TAB] 25 mg PO Q6HR PRN #12 tab 05/13/18 Unknown Rx Tamsulosin [Flomax] 0.4 mg PO QDAY #7 cap 05/13/18 Unknown Rx Amoxicillin/K Clav Tab [Augmentin 1 tab PO Q12HR #20 tab 07/24/18 Unknown Rx 875 mg] Ibuprofen [Motrin] 600 mg PO Q8H PRN #20 tablet 07/24/18 Unknown Rx Tamsulosin [Flomax] 0.4 mg PO QDAY 7 Days #7 cap 10/13/18 Unknown Rx oxyCODONE /ACETAMINOPHEN [Percocet 1 tab PO Q6HR PRN #15 tablet 10/13/18 Unknown Rx 5/325] Ondansetron [Zofran Odt] 4 mg PO Q8HR #10 tab.rapdis 10/26/18 Unknown Rx Oxycodone HCl/Acetaminophen 1 each PO Q6HR PRN #12 tablet 10/26/18 Unknown Rx [Percocet 7.5/325 mg] traMADol [Ultram] 50 mg PO Q6HR PRN #12 tablet 10/26/18 Unknown Rx Allergies Allergy/AdvReac Type Severity Reaction Status Date / Time No Known Allergies Allergy Verified 10/12/18 21:39 ED Review of Systems ROS: Stated complaint: KIDNEY STONES Other details as noted in HPI Comment: All other systems reviewed and negative ED Past Medical Hx - Past Medical History Previous Medical History?: Yes Hx Hypertension: Yes Hx Diabetes: Yes Hx Kidney Stones: Yes Additional medical history: sleep apnea - Surgical History Past Surgical History?: Yes Additional Surgical History: Sleep apnea surgery 1994 - Social History Smoking Status: Current Every Day Smoker Substance Use Type: None - Medications Home Medications: Home Medications Medication Instructions Recorded Confirmed Last Taken Type HYDROcodone/APAP 5-325 [[place] 1 each PO Q4HR PRN #15 tablet 05/13/18 Unknown Rx 5/325] Lisinopril 20 mg PO DAILY 05/13/18 05/13/18 05/13/18 History 20mg Ondansetron [Zofran Odt] 4 mg PO Q6H PRN #20 tab.rapdis 05/13/18 Unknown Rx Promethazine [Phenergan TAB] 25 mg PO Q6HR PRN #12 tab 05/13/18 Unknown Rx Tamsulosin [Flomax] 0.4 mg PO QDAY #7 cap 05/13/18 Unknown Rx metFORMIN 500 mg PO BID 05/13/18 05/13/18 05/13/18 History 500mg Amoxicillin/K Clav Tab [Augmentin 1 tab PO Q12HR #20 tab 07/24/18 Unknown Rx 875 mg] Ibuprofen [Motrin] 600 mg PO Q8H PRN #20 tablet 07/24/18 Unknown Rx Tamsulosin [Flomax] 0.4 mg PO QDAY 7 Days #7 cap 10/13/18 Unknown Rx oxyCODONE /ACETAMINOPHEN [Percocet 1 tab PO Q6HR PRN #15 tablet 10/13/18 Unknown Rx 5/325] Ondansetron [Zofran Odt] 4 mg PO Q8HR #10 tab.rapdis 10/26/18 Unknown Rx Oxycodone HCl/Acetaminophen 1 each PO Q6HR PRN #12 tablet 10/26/18 Unknown Rx [Percocet 7.5/325 mg] traMADol [Ultram] 50 mg PO Q6HR PRN #12 tablet 10/26/18 Unknown Rx ED Physical Exam - General Limitations: No Limitations General appearance: alert, in no apparent distress - Head Head exam: Present: atraumatic, normocephalic - Eye Eye exam: Present: normal appearance - ENT ENT exam: Present: mucous membranes moist - Neck Neck exam: Present: normal inspection - Respiratory Respiratory exam: Present: normal lung sounds bilaterally. Absent: respiratory distress, wheezes, rales, rhonchi - Cardiovascular Cardiovascular Exam: Present: regular rate, normal rhythm. Absent: systolic murmur, diastolic murmur, rubs, gallop - GI/Abdominal GI/Abdominal exam: Present: soft, normal bowel sounds. Absent: distended, tenderness, guarding, rebound - Rectal Rectal exam: Present: deferred - Extremities Exam Extremities exam: Present: normal inspection - Back Exam Back exam: Present: normal inspection - Neurological Exam Neurological exam: Present: alert, oriented X3 - Psychiatric Psychiatric exam: Present: normal affect, normal mood - Skin Skin exam: Present: warm, dry, intact, normal color. Absent: rash ED Course Vital Signs 10/25/18 22:03 Temperature 98.2 F Pulse Rate 80 Respiratory 16 Rate Blood Pressure 134/61 O2 Sat by Pulse 96 Oximetry ED Medical Decision Making - Lab Data Result diagrams: 10/25/18 22:42 10/25/18 22:42 Lab Results 10/25/18 10/25/18 10/26/18 Range/Units 22:42 22:42 00:49 WBC 8.3 (4.5-11.0) K/mm3 RBC 4.29 (3.65-5.03) M/mm3 Hgb 13.8 (11.8-15.2) gm/dl Hct 39.3 (35.5-45.6) % MCV 92 (84-94) fl MCH 32 (28-32) pg MCHC 35 H (32-34) % RDW 14.4 (13.2-15.2) % Plt Count 216 (140-440) K/mm3 Sodium 137 (137-145) mmol/L Potassium 4.5 (3.6-5.0) mmol/L Chloride 103.4 (98-107) mmol/L Carbon Dioxide 21 L (22-30) mmol/L Anion Gap 17 mmol/L BUN 26 H (9-20) mg/dL Creatinine 1.0 (0.8-1.5) mg/dL Estimated GFR > 60 ml/min BUN/Creatinine Ratio 26 % Glucose 277 H (75-100) mg/dL Calcium 8.8 (8.4-10.2) mg/dL Urine Color Yellow (Yellow) Urine Turbidity Clear (Clear) Urine pH 5.0 (5.0-7.0) Ur Specific [place] 1.017 (1.003-1.030) Urine Protein <15 mg/dl (Negative) mg/dL Urine Glucose (UA) >=500 (Negative) mg/dL Urine Ketones Neg (Negative) mg/dL Urine Blood Mod (Negative) Urine Nitrite Neg (Negative) Urine Bilirubin Neg (Negative) Urine Urobilinogen < 2.0 (<2.0) mg/dL Ur Leukocyte Esterase Neg (Negative) Urine WBC (Auto) 2.0 (0.0-6.0) /HPF Urine RBC (Auto) 5.0 (0.0-6.0) /HPF U Epithel Cells (Auto) < 1.0 (0-13.0) /HPF Urine Mucus Few /HPF - Radiology Data Patient still has some mild hydronephrosis on the right. - Medical Decision Making Patient appears relatively comfortable in emergency department. Patient is urged to follow with urology. Patient is to call them in the morning to set up follow-up. Patient given additional pain meds at home. Patient has no evidence of infection or renal function impairment. Critical care attestation.: If time is entered above; I have spent that time in minutes in the direct care of this critically ill patient, excluding procedure time. ED Disposition Clinical Impression: Renal colic on right side Hydronephrosis Qualifiers: Hydronephrosis type: with ureteral calculous obstruction Qualified Code(s): N13.2 - Hydronephrosis with renal and ureteral calculous obstruction Disposition: DC-01 TO HOME OR SELFCARE Is pt being admited?: No Does the pt Need Aspirin: No Condition: Stable Instructions: Kidney Stones (ED) Referrals: SHERRIE BARKER MD [Staff Physician] - 3-5 Days Time of Disposition: 04:04
[2018-10-26 04:15] VITALS: BP 129/66
== END 2018-10-26 04:21 | disposition home or self-care (01) ==
LOC: ED 21:55
DX: N23 Unspecified renal colic (principal); N31.2 Flaccid neuropathic bladder, not elsewhere classified; I10 Essential (primary) hypertension; E11.9 Type 2 diabetes mellitus without complications; F17.200 Nicotine dependence, unspecified, uncomplicated
CPT/HCPCS: 36415; 76775; 80048; 81001; 85027